=== PATIENT | male | born 1980 | race Caucasian/White ===

== ENCOUNTER 2019-09-25 10:22 | Emergency (ER) | payer OTHER, SELFPAY ==
[2019-09-25 10:28] VITALS: BMI 34.7
--- NOTE | 2019-09-25 10:29 | W.ED.NEUROSD ---
HPI - Neuro Symptoms/Deficit General: Chief Complaint: Neuro Symptoms/Deficit Stated Complaint: Left face tingling Time Seen by Provider: 09/25/19 10:29 Source: patient Mode of arrival: ambulatory Limitations: no limitations History of Present Illness: HPI Narrative: Patient comes in today with left side facial pain and discomfort. Patient reports that it feels more like pressure than pain. Patient reports is been going on about 3 to 4 days. Patient does take Claritin routinely for allergy symptoms. Patient does not states that it does not feel like a sinus infection. Patient takes no other routine medications. Patient denies any cigarette smoking or use of drugs. Patient does occasionally have some alcohol. Onset (ago): day(s) Severity: mild Quality: other (pressure) Associated symptoms: Reports headache(s) Review of Systems General: Reports: 10 or more systems reviewed and unremarkable except in HPI and below Neuro: Reports: headache PFSH ED PFSH: Social History Smoking and tobacco status: never smoked Physical Exam Const: COMMON NORMALS: no apparent distress and oriented x3 GENERAL APPEARANCE: cooperative HENMT: COMMON NORMALS: normocephalic, external ears normal, EAC's normal, TM's normal bilaterally and external nose normal HEAD & SCALP: normal to inspection and normocephalic FACE & SINUS: normal facial exam NOSE: external nose normal GENERAL EAR: hearing not grossly impaired EXTERNAL EAR: Yes external ears normal EXTERNAL AUDITORY CANAL: EAC's normal TYMPANIC MEMBRANE: TM's normal bilaterally MOUTH: oral and palatal mucosa normal THROAT: posterior oropharynx normal Eye: COMMON NORMALS: PERRL and EOMs intact bilaterally PUPIL: Yes PERRL Neck/C-Spine: COMMON NORMALS: full ROM and no lymphadenopathy Lymph: LYMPHATIC: no lymphedema noted Chest: COMMONS NORMALS: inspection of chest normal and palpation of chest normal Resp: COMMON NORMALS: normal respiratory effort and clear to auscultation bilaterally AUSCULTATION: clear to auscultation bilaterally Cardio: COMMON NORMALS: regular rate and regular rhythm RATE: regular rate RHYTHM: regular rhythm GI: COMMON NORMALS: normal to inspection, nondistended, normoactive bowel sounds and non-tender : COMMON NORMALS: Yes no CVA tenderness BLADDER/KIDNEY EXAM: Yes no CVA tenderness Back/Pelvis: COMMON NORMALS: no CVA tenderness and thoracic and lumbar spine normal to inspection Extremity: COMMON NORMALS: normal to inspection GENERAL: No edema Neuro: COMMON NORMALS: oriented x3, moves all extremities and no focal motor deficits Psych: COMMON NORMALS: mental status grossly normal and cooperative Skin: COMMON NORMALS: no rashes or lesions noted GENERAL SKIN EXAM: no rashes or lesions noted Course Vital Signs: Vital signs: Vital Signs Temperature 98.3 F 09/25/19 10:31 Pulse Rate 92 09/25/19 10:31 Respiratory Rate 16 09/25/19 10:31 Blood Pressure 154/126 09/25/19 10:31 Pulse Oximetry 98 09/25/19 10:31 MDM - Neuro Symptoms/Deficit MDM Narrative: Medical decision making narrative: Patient comes in today for complaints of left side discomfort and altered sensation to the face. No focal neural deficits, abnormal sensation, or drooping is noted to the face. Pupils are equal reactive. Respirations are even lungs are clear to auscultation. Bilateral tympanic membranes are normal. Patient moves all extremities without difficulty. Differential diagnosis includes electrolyte disturbance, Mcknight's palsy, trigeminal neuralgia, migraine headache, cluster headache, CVA, ACS, sinusitis, intracranial bleeding, tumor. CT scan of the head and sinuses noted no abnormalities. Laboratory values were fine. Expect some trigeminal neuralgia versus a Mcknight's palsy type disorder. Patient was medicated with Benadryl and Reglan for possible migraine. Patient will be started on steroids for 5 days encouraged to drink plenty of fluids and use Tylenol and ibuprofen for discomfort. Patient reported understanding of care plan and need for follow-up in 1 week with primary care for persistent symptoms. Patient was recommended to return to the ER for worsening symptoms or high fever. Lab Data: Labs: Lab Results 09/25/19 09/25/19 Range/Units 11:21 11:21 WBC 5.2 (4.0-10.0) 10^3/ uL RBC 5.20 (4.1-5.3) 10^6/u L Hgb 15.0 (11.7-16.6) g/dL Hct 46.3 (42.0-52.0) % MCV 89.0 (80-94) fL MCH 28.8 (28.0-34.0) pg MCHC 32.4 (30.0-36.0) g/dL RDW 12.0 L (12.1-15.1) % Plt Count 256 (130-400) 10^3/c mm MPV 10.4 (7.4-10.4) fL Neut % (Auto) 58.1 % Lymph % (Auto) 33.7 % Ransom % (Auto) 6.2 % Eos % (Auto) 1.0 % Baso % (Auto) 0.6 % Neut # (Auto) 3.0 (1.8-7.7) 10^3/u L Lymph # (Auto) 1.8 (0.8-4.8) 10^3/u L Ransom # (Auto) 0.3 (0.2-0.9) 10^3/u L Eos # (Auto) 0.1 (0.0-0.8) 10^3/u L Baso # (Auto) 0.0 (0.0-0.1) 10^3/u L Nucleated RBC % (a uto) 0 % Nucleated RBCs # 0.0 /100WBC Sodium 140 (136-145) mmol/L Potassium 4.4 (3.5-5.1) mmol/L Chloride 102 (98-107) mmol/L Carbon Dioxide 27 (22-29) mmol/L Anion Gap 15.4 (5-19) BUN 18 (6-20) mg/dL Creatinine 0.9 (0.7-1.2) mg/dL GFR Calculation 93.0 (90-130) mL/min Glucose 105 (65-115) mg/dL Calculated Osmolal ity 287 (285-295) mOsm/k g Calcium 9.6 (8.5-10.5) mg/dL Total Bilirubin 0.3 (0.15-1.2) mg/dL AST 22 (0-40) U/L ALT 25 (0-41) U/L Alkaline Phosphata se 55 (40-130) IU/L Total Protein 6.9 (6.6-8.7) g/dL Albumin 4.3 (3.5-5.2) g/dL Globulin 2.6 (1.3-4.6) g/dL EKG Data^: EKG 1: Attestation: I personally reviewed and interpreted this EKG as follows: (1105, NSR, rate regular 77 bpm, no ectopy or ST elevation) Discharge Plan Discharge Patient Disposition: Home, Self-Care Clinical Impression: Trigeminal neuralgia of left side of face Condition: Stable Prescriptions: New prednisone 20 mg tablet 20 mg PO BID 5 Days Qty: 10 RF: 0 No Action Claritin 10 mg Tablet 10 mg PO DAILY RF: 0 Referrals: Dalton Garcia MD [Primary Care Provider] - Discharge Diet: Usual diet Discharge Activity: Increase activity as tolerated Patient Instructions: Trigeminal Neuralgia (ED) Activity Restrictions/Additional Instructions: Drink plenty of fluids Use acetaminophen and ibuprofen as needed for pain Take steroid as directed for the next 5 days Follow-up with primary care in 5 days for recheck Return to ER for worsening symptoms, high fever or new concerns Coding 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
--- NOTE | 2019-09-25 10:30 | CT_ITS ---
WS: [id number] CT HEAD TECHNIQUE: Noncontrast CT of the head obtained from the skullbase to the vertex. CLINICAL INFORMATION: facial numbness COMPARISON: None. DLP: 804.[address] scans at [facility] use at least one of these dose optimization techniques: automat ed exposure control; mA and/or kV adjustment per patient size (includes targeted exams where dose is matched to clinical indication); or iterative reconstruction. FINDINGS: No evidence of intracranial hemorrhage or mass effect. Ventricular system and basal cisterns are gar nt.No extra-axial fluid collections. No evidence of mass or mass effect. Normal alvarado-white differenti ation. Paranasal sinuses and mastoid air cells are well aerated. .Normal visualized soft tissues. CT/CT head wo con* [id number] IMPRESSION: 1. No evidence of intracranial hemorrhage or mass effect. 2. No acute intracranial findings.
--- NOTE | 2019-09-25 10:30 | ECG_ITS ---
Measurements Intervals Gallagher Rate: 77 P: 15 NV: 188 QRS: 17 QRSD: 103 T: 55 QT: 376 QTc: 426 SINUS RHYTHM Compared to ECG 08/15/2016 11:48:32 Sinus tachycardia no longer present Myocardial infarct finding no longer present Electronically Signed On 09-26-2019 8:04:14 CDT by Mouna Chapa [email or web address]
[2019-09-25 10:31] VITALS: BP 154/126; PULSE 92; RESP 16; TEMP 36.8; O2SAT 98
--- NOTE | 2019-09-25 10:35 | CT_ITS ---
WS: [id number] CT SINUSES TECHNIQUE: Noncontrast CT of the paranasal sinuses with coronal and sagittal reformatted images. CLINICAL INFORMATION: headache COMPARISON: None. DLP: 556.[address] scans at [facility] use at least one of these dose optimization techniques: automat ed exposure control; mA and/or kV adjustment per patient size (includes targeted exams where dose is matched to clinical indication); or iterative reconstruction. FINDINGS: Mild nasal deviation. Ostiomeatal units are patent with mild narrowing. Paranasal sinuses are well ae rated. Frontal sinuses, maxillary sinuses, sphenoid sinus and ethmoid air cells are well aerated. No evidence of acute sinusitis. Mastoid air cells are well aerated. CT/CT sinus wo con* [id number] IMPRESSION: 1. Paranasal sinuses are well aerated. No evidence of acute sinusitis. 2. Mastoid air cells well aerated. 3. Mild nasal septal deviation.
[2019-09-25 11:30] LABS: Basophils % 0.6 %; Eosinophils # 0.1 10^3/uL (0.0-0.8); Hematocrit 46.3 % (42.0-52.0); Lymphocytes # 1.8 10^3/uL (0.8-4.8); Lymphocytes % 33.7 %; Mean Corpuscular HGB Conc 32.4 g/dL (30.0-36.0); Mean Corpuscular Hemoglobin 28.8 pg (28.0-34.0); Mean Platelet Volume 10.4 fL (7.4-10.4); Monocytes # 0.3 10^3/uL (0.2-0.9); Monocytes % 6.2 %; Neutrophils % 58.1 %; Nucleated Red Blood Cells % 0 %; Platelet Count 256 10^3/cmm (130-400); White Blood Count 5.2 10^3/uL (4.0-10.0)
[2019-09-25 11:52] LABS: Alanine Aminotransferase 25 U/L (0-41); Albumin Level 4.3 g/dL (3.5-5.2); Alkaline Phosphatase 55 IU/L (40-130); Anion Gap 15.4 (5-19); Aspartate Amino Transferase 22 U/L (0-40); Blood Urea Nitrogen 18 mg/dL (6-20); Calcium 9.6 mg/dL (8.5-10.5); Carbon Dioxide 27 mmol/L (22-29); Chloride 102 mmol/L (98-107); Creatinine Clr Calc Pharmacy 150.1928; Globulin 2.6 g/dL (1.3-4.6); Glucose 105 mg/dL (65-115); Osmolality Calculated 287 mOsm/kg (285-295); Potassium 4.4 mmol/L (3.5-5.1); Sodium 140 mmol/L (136-145); Total Bilirubin 0.3 mg/dL (0.15-1.2); Total Protein 6.9 g/dL (6.6-8.7)
[2019-09-25] MEDS: dexamethasone 4 mg Tablet 10 MG PO (12:30)
[2019-09-25] MEDS: diphenhydrAMINE 50 mg/mL SDV 1mL IM (12:32)
[2019-09-25] MEDS: metoclopramide 5 mg/mL SDV 2 mL 10 MG IM (12:33)
[2019-09-25 12:53] VITALS: BP 119/89; PULSE 75; RESP 16; O2SAT 99
== END 2019-09-25 12:45 | disposition home or self-care (01) ==
LOC: ER 12:45
PROVIDERS: Emergency Provider Nurse Practitioner Family; PCP Family Medicine
DX: G50.0 Trigeminal neuralgia (principal)
CPT/HCPCS: 12345; 36415; 70450; 70486; 80053; 85025; 93005; 93010; 96372; 99282; 99283; J1200; J2765; J8540